=== PATIENT | female | born 2000 | race Two or more races ===

== ENCOUNTER 2025-01-13 20:21 | Emergency (ER) | payer MEDICAID, SELFPAY ==
[2025-01-13 21:08] VITALS: BP 114/76; PULSE 85; RESP 16; TEMP 37.3; O2SAT 99; BMI 25.2
--- NOTE | 2025-01-13 21:38 | PD.EDRME ---
Rapid Medical Screening Exam RME Arrival date/time: 01/13/25 20:21 Chief Complaint: Animal Bite Time Seen by Provider: 01/13/25 20:25 Vital signs: Vital Signs Temperature 99.1 F 01/13/25 21:08 Pulse Rate 85 01/13/25 21:08 Respiratory Rate 16 01/13/25 21:08 Blood Pressure 114/76 01/13/25 21:08 Pulse Oximetry (%) 99 01/13/25 21:08 Oxygen Delivery Method Room Air 01/13/25 21:08 Vital signs reviewed by provider: Yes RME Narrative: 44-year-old female presents to the ED with a complaint of a dog bite to her right forearm. Patient states that she brought her poodle over to her aunts house for [employer] and her aunts dog started to become aggressive so she picked up her dog when the aunts dog bit her in the right forearm. Her last tetanus shot is unknown.
[2025-01-13] MEDS: DIPHTH,PERTUSS(ACELL),TET VAC 0.5 ML SYR- ADULT IMi (22:37)
--- NOTE | 2025-01-13 23:00 | EDNOTE_ITS ---
ED Animal Bite RME/HPI General Chief Complaint: Animal Bite Stated Complaint: DOG BITE TO RIGHT ARM Time Seen by Provider: 01/13/25 20:25 Arrival date/time: 01/13/25 20:21 RME / HPI RME / HPI narrative: 24-year-old female presents to the ED with a complaint of a dog bite to her right forearm. Patient states that she brought her poodle over to her aunts house for [employer] and her aunts dog started to become aggressive so she picked up her dog when the aunts dog bit her in the right forearm. Her last tetanus shot is unknown. Related Data Previous Rx's ?Medication ?Instructions ?Recorded benzonatate 100 mg capsule 100 mg PO BID PRN cough #20 caps 10/30/23 Allergies Allergy/AdvReac Type Severity Reaction Status Date / Time NKA Allergy Unknown Uncoded 01/13/25 20:22 No Known Allergies Allergy Uncoded 01/13/25 20:22 Review of Systems Review of Systems Systems Reviewed: All systems reviewed, normal except as documented Past Medical History Social History SMOKING STATUS: Never smoker ED Exam Narrative Physical exam: Alert and oriented 25-year-old female, no acute distress. Lungs are clear, regular rate and rhythm. Right forearm with minor bite wound. No current bleeding noted. Mild braised tissue surrounding. Mild tenderness surrounding the wound. No bony point tenderness of the forearm. CMS intact distally. Course Course Course Narrative: Wounds were cleansed, antibiotic ointment applied and a dressing. Tdap was updated. Patient will be given Augmentin antibiotic for prevention of infection. Patient was discharged home in stable and improved condition with instructions to follow-up with her primary care physician in 24 to 48 hours for a wound recheck. She was encouraged to return to the ED for any new or worsening symptoms. Quality Measures none Orders Category Date Time Status TDap [Obtain Tdap Consent] X1 Care 01/13/25 21:39 Completed Wound Care NOW Care 01/13/25 21:39 Completed TET,DIP/PERT AC (Adult)-Tdap [Boostrix Adult (Tdap) Med 01/13/25 21:39 Discontinued Vacc] 0.5 ml IMI .ONCE ONE Vital Signs Vital signs: Vital Signs Temperature 99.1 F 01/13/25 21:08 Pulse Rate 85 01/13/25 21:08 Respiratory Rate 16 01/13/25 21:08 Blood Pressure 114/76 04/20/25 21:08 Pulse Oximetry (%) 99 01/13/25 21:08 Oxygen Delivery Method Room Air 01/13/25 21:08 Animal Bite MDM Narrative MDM Narrative:: 24-year-old female presents to the ED with a complaint of a dog bite to her right forearm. Patient states that she brought her poodle over to her aunts house for [employer] and her aunts dog started to become aggressive so she picked up her dog when the aunts dog bit her in the right forearm. Her last tetanus shot is unknown. Alert and oriented 25-year-old female, no acute distress. Lungs are clear, regular rate and rhythm. Right forearm with minor bite wound. No current bleeding noted. Mild braised tissue surrounding. Mild tenderness surrounding the wound. No bony point tenderness of the forearm. CMS intact distally. Wounds were cleansed, antibiotic ointment applied and a dressing. Tdap was updated. Patient will be given Augmentin antibiotic for prevention of infection. Patient was discharged home in stable and improved condition with instructions to follow-up with her primary care physician in 24 to 48 hours for a wound rec heck. She was encouraged to return to the ED for any new or worsening symptoms. Patient data External records reviewed:: None Clinical information provided by:: patient Social determinants that could affect healthcare access:: none Patient has the following chronic illnesses:: N/A How is presenting disease/condition affected by chronic disease/condition?: no chronic disease Evaluation data The following diagnostics were reviewed and interpreted by me:: other (specify) (N/A) Lab and/or radiology exams considered but not ordered:: N/A Interpretation Summary: N/A Medications / Prescriptions Medications or Prescriptions considered but not ordered:: N/A Medication administrations:: Medication Administration History Discontinued Medications Diphtheria/Tetanus/Acell Pertussis (Diphth,Pertuss(Acell),Tet Vac 0.5 Ml Syr- Adult) 0.5 ml IMi .ONCE ONE Stop: 01/13/25 21:40 Last Admin: 01/13/25 22:37 Dose: 0.5 ml Documented By: KF As above Consultations Consultation(s) initiated? (list below): No Diagnosis Differential diagnosis animal bite: bite by animal and dog bite Most likely diagnosis given after review of the tests above:: Minor dog bite wound to the right forearm. Admission Indicated Admission indicated?: not indicated Explain why admission is indicated or not indicated:: Patient is stable for discharge Admission Request Was there a request for admission?: No Admission Attestation Admission request attestation: N/A Disposition Plan Disposition Plan: Discharge Discharge Attestation Discharge Attestation: The patient and all family members were given an opportunity to ask questions and understood the discharge instructions. Discharge instructions specifically effects, indications for sooner follow up or return to the emergency department, and the expected course of current diagnosis. Patient condition: Stable Discharge Plan Plan Patient Disposition: HOME (Self Care) Discharge Disposition comment: Stable Prescriptions/Referrals Prescriptions/Med Rec: No Action benzonatate 100 mg capsule 100 mg PO BID PRN (Reason: cough) Qty: 20 0RF Referrals: No Primary/Family,Physician [Primary Care Provider] - In 1 week Problem List Clinical Impression: Dog bite Patient/Caregiver Discharge Instructions Other Activity Instructions:: Take the antibiotics as prescribed and complete the course even though you may be feeling better. Education Materials: Animal Bites and Scratches Additional Instructions: Follow-up with your primary care physician in 24 to 48 hours. Return to the ED for any new or worsening symptoms, including redness, increasing pain or swelling, drainage from the wound. Print Language: Greek Stand Alone Forms: [employer] Award Info., Work/School Release, Patient Portal Info Letter Vaccines Vaccines Given During Stay: TDaP PA/AYDEN Supervising Physician RUBEN/AYDEN Supervising Physician: Dr Oliver
== END 2025-01-13 22:47 | disposition home or self-care (01) ==
PROVIDERS: Emergency Provider Emergency Medicine
DX: S51.851A Open bite of right forearm, initial encounter (principal); W54.0XXA Bitten by dog, initial encounter; Z23 Encounter for immunization
CPT/HCPCS: 90471; 90715; 99282

== ENCOUNTER 2025-06-04 20:57 | Emergency (ER) | payer MEDICAID, SELFPAY ==
--- NOTE | 2025-06-04 21:16 | PD.EDHA ---
ED Headache RME/HPI General Chief Complaint: Headache Stated Complaint: HEADACHE Time Seen by Provider: 06/04/25 21:12 Arrival date/time: 06/04/25 20:57 RME / HPI RME / HPI Narrative: See [facility] for Dr. Oliver's HPI documentation. Related Data Previous Rx's ?Medication ?Instructions ?Recorded benzonatate 100 mg capsule 100 mg PO BID PRN cough #20 caps 10/30/23 acetaminophen 300 mg-codeine 30 mg 2 tab PO Q8H PRN pain #20 tabs 06/04/25 tablet lidocaine 5 % topical patch 1 patch topical QDAY PRN pain #30 06/04/25 (Lidoderm) ea Allergies Allergy/AdvReac Type Severity Reaction Status Date / Time No Known Allergies Allergy Verified 06/04/25 20:58 Review of Systems Review of Systems Systems Reviewed: All systems reviewed, normal except as documented Past Medical History Social History SMOKING STATUS: Never smoker ED Exam Narrative Physical exam: See [facility] for Dr. Oliver's physical exam documentation. Course Quality Measures none Orders Category Date Time Status CT head/brain wo con Stat Exams 06/04/25 21:20 Completed ACETAMINOPHEN w/COD 300-30 [Tylenol w/Cod #3] Med 06/04/25 21:19 Discontinued 2 tab PO X1 ONE Lidocaine 5% Patch Med 06/04/25 21:19 Discontinued 1 patch TOP X1 ONE Vital Signs Vital signs: Vital Signs Temperature 98.6 F 06/04/25 21:17 Pulse Rate 83 06/04/25 21:17 Respiratory Rate 16 06/04/25 21:17 Blood Pressure 130/94 H 06/04/25 21:17 Pulse Oximetry (%) 99 06/04/25 21:17 Oxygen Delivery Method Room Air 06/04/25 21:17 Headache [facility] Narrative [facility] Narrative:: This section includes all my notes and documentations, including HPI, PE, and ED course. Chris Oliver MD HPI: 24yo female here with intermittent sharp left-sided headache for the last several days. She has taken Tylenol and Ibuprofen without any alleviation of symptoms. No nausea, vomiting, fever, cough, or vision problems. No photophobia or phonophobia. She describes sharp and stabbing intermittent pain. No other complaints reported. ROS: All negative except as documented in HPI. Physical Exam: General: Alert and oriented. No acute distress when remaining still. Eyes: Conjunctivae and lids clear. PERRL. EOMI. ENT: No nasal congestion. Pharynx normal. TM normal bilaterally. Neck: Supple. Heart: RRR. Lungs: No respiratory distress. Good air movement. No rhonchi, wheezing, rales. Abdomen: Soft and nontender. Neuro: Alert and oriented X 3. Cranial nerves II to XII grossly normal. No peripheral motor deficits. I reviewed all diagnostic test results. My review of the CT head report is NAD. At this point, diagnoses include: Trigeminal neuralgia Treatment here included: Tylenol with Codeine Lidocaine patch Significant improvement noted. Recommended more outpatient management. Based on my best medical judgment, made decision no further evaluation or treatment indicated at this time. Patient understands and agrees to the discharge instructions customized and printed, see below. Discharge Instructions from Dr. Oliver: --After evaluation, your symptoms are due to Trigeminal Neuralgia. See attached handout. --There is no life-threatening condition, such as stroke or brain tumor. --Trigeminal neuralgia is a problem with the large nerves that brings feeling to your head/face. It causes sudden, sharp pain on one side of your head. --Some people can have long periods without the pain, some more frequently. --There are no good medications that help the pain really well. Apply lidocaine pain patches as needed. --Tylenol codeine as needed. --See a private doctor on 06/06/2025 for recheck and further care. Ask for referrals to see specialists (such as Neurologist) to help you. Nerve blocks can help. --Seek immediate medical care with intolerable pain or with any concerns. Chris Oliver MD Patient data External records reviewed:: [facility] previous records (Per chart review, patient has no relevant previous ED visits.) Clinical information provided by:: patient Social determinants that could affect healthcare access:: none Patient has the following chronic illnesses:: none How is presenting disease/condition affected by chronic disease/condition?: no chronic disease Evaluation data The following diagnostics were reviewed and interpreted by me:: radiology exam(s) Lab and/or radiology exams considered but not ordered:: none Interpretation Summary: I reviewed all diagnostic test results. My review of the CT head report is NAD. Medications / Prescriptions Medications or Prescriptions considered but not ordered:: none Medication administrations:: Medication Administration History Discontinued Medications Acetaminophen/Codeine Phosphate (Acetaminophen W/Cod 300-30 Tablet) 2 tab PO X1 ONE Stop: 06/04/25 21:20 Last Admin: 06/04/25 21:46 Dose: 2 tab Documented By: LIA Lidocaine (Lidocaine 5% 1 Patch) 1 patch TOP X1 ONE Stop: 06/04/25 21:20 Last Admin: 06/04/25 21:49 Dose: 1 patch Documented By: LIA Tylenol with Codeine, Lidocaine patch Consultations Consultation(s) initiated? (list below): No Diagnosis Differential diagnosis headache: migraine, tension headache, subarachnoid hemorrhage and headache Most likely diagnosis given after review of the tests above:: Trigeminal neuralgia Admission Indicated Admission indicated?: not indicated Explain why admission is indicated or not indicated:: With significant improvement and no condition needing emergent intervention, there was no indication for admission. Admission Request Was there a request for admission?: No Disposition Plan Disposition Plan: Discharge Discharge Attestation Discharge Attestation: The patient and all family members were given an opportunity to ask questions and understood the discharge instructions. Discharge instructions specifically effects, indications for sooner follow up or return to the emergency department, and the expected course of current diagnosis. Patient condition: Stable Discharge Plan Plan Patient Disposition: HOME (Self Care) Prescriptions/Referrals Prescriptions/Med Rec: New acetaminophen-codeine 300-30 mg tablet 2 tab PO Q8H MDD 6 PRN (Reason: pain) Qty: 20 0RF lidocaine [Lidoderm] 5 % adhesive patch,medicated 1 patch topical QDAY PRN (Reason: pain) Qty: 30 0RF Rx Instructions: leave on most painful area for up to 12 hrs No Action benzonatate 100 mg capsule 100 mg PO BID PRN (Reason: cough) Qty: 20 0RF Referrals: Beth Cruz FNP ([email or web address]) [Primary Care Provider] - In 1 week Problem List Clinical Impression: Trigeminal neuralgia Patient/Caregiver Discharge Instructions Discharge Activity: activity as tolerated Education Materials: ED Trigeminal Neuralgia Additional Instructions: Discharge Instructions from Dr. Oliver: --After evaluation, your symptoms are due to Trigeminal Neuralgia. See attached handout. --There is no life-threatening condition, such as stroke or brain tumor. --Trigeminal neuralgia is a problem with the large nerves that brings feeling to your head/face. It causes sudden, sharp pain on one side of your head. --Some people can have long periods without the pain, some more frequently. --There are no good medications that help the pain really well. Apply lidocaine pain patches as needed. --Tylenol codeine as needed. --See a private doctor on 06/06/2025 for recheck and further care. Ask for referrals to see specialists (such as Neurologist) to help you. Nerve blocks can help. --Seek immediate medical care with intolerable pain or with any concerns. Print Language: Belarusian Stand Alone Forms: [employer] Award Info., Patient Portal Info Letter
[2025-06-04 21:17] VITALS: BP 130/94; PULSE 83; RESP 16; TEMP 37; O2SAT 99
--- NOTE | 2025-06-04 21:20 | XR_ITS ---
Examination: CT brain head without contrast. 2-D sagittal coronal reconstructions Date and time of exam:June 04, 2000 2510 0 1:00 PM Indications: Headaches Onset beginning 4 days ago CTDI: vol (mGy):51.8 DLP: (mGycm):999 Technique: Multiple CT axial sections of the brain have been obtained, 5 mm slice thickness. Contrast has not been administered. 2-D sagittal, coronal reconstructions have been obtained Low dose protocols were performed. One or more of the following dose reduction techniques were used; automated exposure control, adjustment of the mA and/or KV according to patient size, use of iterative reconstruction technique. Findings: No significant ventricular enlargement. Intra-axial or extra-axial hemorrhage density is not seen. No mass effect or midline shift Basal cisterns are not remarkable. Fourth ventricle is midline. Cranial vault intact. Impression: Negative for acute hemorrhage, mass effect or midline shift [id number] Advise clinical correlation follow-up accordingly
[2025-06-04] MEDS: ACETAMINOPHEN w/COD 300-30 TABLET 2 TAB PO (21:46)
[2025-06-04] MEDS: LIDOCAINE 5% 1 PATCH TOP (21:49)
[2025-06-04 23:30] VITALS: RESP 18
== END 2025-06-04 23:30 | disposition home or self-care (01) ==
PROVIDERS: Emergency Provider Emergency Medicine; PCP Nurse Practitioner Primary Care
DX: G50.0 Trigeminal neuralgia (principal)
CPT/HCPCS: 70450; 99283; J3490; A9270